=== PATIENT | male | born 1995 | race Caucasian/White ===

== ENCOUNTER 2017-01-09 23:25 | Emergency (ER) | payer MEDICAID ==
[~2017-01-09] VITALS: Ht 170.2 cm; Wt 78.0 kg
[2017-01-09 23:28] VITALS: BP 145/70
--- NOTE | 2017-01-09 23:50 | NUR ---
TO ER OF2
--- NOTE | 2017-01-09 23:55 | NUR ---
Patient being evaluated by physician.
[2017-01-10] MEDS ORDERED: KETOROLAC 30 MG/ML VIAL IM ONE
[2017-01-10 00:30] VITALS: BP 134/75
--- NOTE | 2017-01-10 00:30 | NUR ---
Patient discharged with v/s stable. Written and verbal after care instructions given and explained. Patient alert, oriented and verbalized understanding of instructions. Ambulatory with steady gait. All questions addressed prior to discharge. ID band removed. Patient advised to follow up with PMD. Rx of CLOTRIMAZOLE CREAM,NAPROSYN AND KEFLEX given. Patient educated on indication of medication including possible reaction and side effects. Opportunity to ask questions provided and answered.
== END 2017-01-10 00:30 | disposition home or self-care (01) ==
LOC: MED 23:25
DX: B35.3 Tinea pedis (principal); L03.115 Cellulitis of right lower limb
CPT/HCPCS: 96372; 99283; J1885

== ENCOUNTER 2018-09-24 12:57 | Emergency (ER) | payer MEDICAID ==
[~2018-09-24] VITALS: Ht 172.7 cm; Wt 90.7 kg
[2018-09-24 13:00] VITALS: BP 144/96
--- NOTE | 2018-09-24 13:00 | NUR ---
PT TRIAGED, FLU SWAB COLLECTED AND URINE SPECIMENT OBTIANED.
--- NOTE | 2018-09-24 14:25 | NUR ---
PT AMBULATED TO ER BED 01
--- NOTE | 2018-09-24 14:33 | NUR ---
PATIENT PRESENTS TO ED WITH c/o hacking dry cough, bodyaches, fever, fatigue x 1 wk denies n/v .. DENIES N/V/D; SKIN IS PINK/WARM/DRY; AAOX4 WITH EVEN AND STEADY GAIT; LUNGS CLEAR BL; HR EVEN AND REGULAR; PT DENIES ANY FEVER, CP, SOB, OR COUGH AT THIS TIME; PATIENT STATES PAIN OF 8/10 AT THIS TIME; VSS; PATIENT POSITIONED FOR COMFORT; HOB ELEVATED; BEDRAILS UP X2; BED DOWN. ER MD MADE AWARE OF PT STATUS.
[2018-09-24 16:10] VITALS: BP 132/74
--- NOTE | 2018-09-24 16:10 | NUR ---
Patient discharged with v/s stable. Written and verbal after care instructions given and explained. Patient verbalized understanding. Ambulatory with steady gait. All questions addressed prior to discharge. Advised to follow up with PMD.
== END 2018-09-24 16:10 | disposition home or self-care (01) ==
LOC: MED 12:57
DX: K52.9 Noninfective gastroenteritis and colitis, unspecified (principal); J10.1 Influenza due to other identified influenza virus with other respiratory manifestations; R42 Dizziness and giddiness; Z79.1 Long term (current) use of non-steroidal anti-inflammatories (NSAID)
CPT/HCPCS: 36415; 71046; 87804; 99284